=== PATIENT | male | born 1955 | race Caucasian/White ===

== ENCOUNTER 2022-10-14 11:41 | Outpatient (CLI) | payer MEDICARE ==
[2022-10-14 14:52] LABS: BASOPHILS % (AUTO) 0.3 %; EOSINOPHILS # (AUTO) 0.3 10^3/uL (0.0-0.7); EOSINOPHILS % (AUTO) 3.2 %; HCT - HEMATOCRIT 46.2 % (42.0-52.0); HGB - HEMOGLOBIN 15.8 g/dL (14.0-18.0); LYMPHOCYTES # (AUTO) 3.3 10^3/uL (1.5-3.5); LYMPHOCYTES % (AUTO) 36.2 %; MEAN CORPUSCULAR HEMOGLOBIN 29.2 pg (27.0-31.0); MEAN CORPUSCULAR HGB CONC 34.2 g/dL (32.0-36.0); MEAN CORPUSCULAR VOLUME 85.4 fL (80.0-94.0); MEAN PLATELET VOLUME 10.7 fL (7.4-11.4); MONOCYTES # (AUTO) 0.7 10^3/uL (0.0-1.0); MONOCYTES % (AUTO) 7.6 %; NEUTROPHILS # (AUTO) 4.8 10^3/uL (1.5-6.6); NEUTROPHILS % (AUTO) 52.5 %; PLT - PLATELET COUNT 241 10^3/uL (130-450); RED BLOOD COUNT 5.41 10^6/uL (4.70-6.10); RED CELL DISTRIBUTION WIDTH 12.2 % (12.0-15.0); WHITE BLOOD COUNT 9.1 x10^3/uL (4.8-10.8)
[2022-10-14 15:08] LABS: CALCIUM 10.3 mg/dL (8.5-10.3); CREATININE 1.1 mg/dL (0.6-1.2); POTASSIUM 4.1 mmol/L (3.5-5.0)
[2022-10-14 15:26] LABS: THYROID STIMULATING HORMONE 10.68 uIU/mL (0.34-5.60)
[2022-10-14 16:25] LABS: FREE T4 (FREE THYROXINE) 0.75 ng/dL (0.58-1.64)
== END 2022-10-14 11:42 | disposition home or self-care (01) ==
LOC: LAB.S 11:41
PROVIDERS: ATTEND Physician Assistant
DX: R53.83 Other fatigue (principal); M54.2 Cervicalgia
CPT/HCPCS: 36415; 80048; 84439; 84443; 85025

== ENCOUNTER 2022-10-23 14:51 | Outpatient (CLI) | payer MEDICARE ==
[2022-10-23] MEDS ORDERED: iohexoL-300 100 ML VIAL ONE (14:56)
[2022-10-23] MEDS ORDERED: iohexoL-300 100 ML VIAL IVP ONE (17:15)
--- NOTE | 2022-10-23 17:23 | CT Report ---
PROCEDURE: SOFT TISSUE NECK W INDICATIONS: HOT FLASHES, PAIN IN THYROID CONTRAST: 100mL Omni 300 TECHNIQUE: After the administration of intravenous contrast, 3.0 mm axial sections acquired from the sella to th e aortic arch. Additional oblique axial 3.0 mm sections acquired through the pharynx. 3 mm thick co alberto reformats were generated. For radiation dose reduction, the following was used: automated exp osure control, adjustment of mA and/or kV according to patient size. COMPARISON: None. FINDINGS: Image quality: Excellent. Lymph nodes: No enlarged lymph nodes seen throughout the neck. Vessels: Visualized vasculature appears patent. Neck spaces: The oropharynx, nasopharynx, and pharynx demonstrate no mucosal lesions. The vocal cor ds, false vocal cords, pyriform sinuses, epiglottis, vallecula, and tongue base all appear normal. E xtramucosal spaces appear unremarkable. Glands: The submandibular glands appear normal. The parotid glands appear symmetrically enlarged an d fatty infiltrated. In this patient with this given history, scrutiny is given to the thyroid. The thyroid demonstrates a normal appearance, without focal masses or concerning inflammatory change. Miscellaneous: Visualized brain and orbits appear normal. Lung apices appear clear. Superficial so ft tissues appear normal. Bones: No suspicious bony lesions. Visualized sinuses and mastoids appear unremarkable. There is o verall straightening of the normal cervical lordosis. At least moderate cervical spine degenerative c hange can be seen, which is worst inferiorly. IMPRESSION: Normal thyroid by CT. No masses or enlarged lymph nodes can be seen elsewhere. Additional findings: Symmetrically enlarged and fatty infiltrated parotid glands At least moderate cervical spine degenerative change Reviewed by: Otto Pride MD on 10/23/2022 4:21 PM [facility] Approved by: Otto Pride MD on 10/23/2022 4:21 PM [facility] Station ID: [id number]
== END 2022-10-23 14:52 | disposition home or self-care (01) ==
LOC: DI 14:51
PROVIDERS: ATTEND Registered Nurse
DX: M54.2 Cervicalgia (principal); L04.8 Acute lymphadenitis of other sites; R53.83 Other fatigue; R23.2 Flushing
CPT/HCPCS: 70491; Q9967

== ENCOUNTER 2022-12-23 07:58 | Outpatient (CLI) | payer MEDICARE ==
[2022-12-23 15:14] LABS: CREATININE,URINE 103.3 mg/dL; MICROALBUMIN,URINE 3.2 mg/dL (0-300.0)
[2022-12-23 17:12] LABS: CALCIUM 10.6 mg/dL (8.5-10.3); CREATININE 0.9 mg/dL (0.6-1.2); POTASSIUM 4.2 mmol/L (3.5-5.0)
[2022-12-23 20:08] LABS: ESTIMATED AVERAGE GLUCOSE 260 mg/dL (70-100); HEMOGLOBIN A1c% 10.7 % (4.27-6.07)
== END 2022-12-23 07:59 | disposition home or self-care (01) ==
LOC: LAB.S 07:58
PROVIDERS: ATTEND Registered Nurse
DX: R73.9 Hyperglycemia, unspecified (principal)
CPT/HCPCS: 36415; 80048; 82043; 82570; 83036

== ENCOUNTER 2023-01-05 09:34 | Outpatient (CLI) | payer MEDICARE ==
--- NOTE | 2023-01-05 12:30 | Ultrasound Report ---
PROCEDURE: Head or Neck Soft Tissue INDICATIONS: PAIN IN THYROID TECHNIQUE: Real-time scanning was performed of the thyroid gland, with image documentation. COMPARISON: None FINDINGS: Right: Thyroid lobe measures 3.5 x 1.3 x 2.1 cm, and is homogeneous in echotexture. Left: Thyroid lobe measures 4.4 x 1.3 x 2.1 cm, and is homogenous in echotexture. Isthmus: 3 mm thick. Nodule number: One Location: Left inferior Size: 0.5 x 0.4 x 0.6 cm. Composition: Cystic Echogenicity: Anechoic Shape: wider than tall. Margins: Smooth Echogenic foci: None Total points: 0 ACR TI-RADS category: 1 IMPRESSION: Homogeneous thyroid without suspicious nodule. Incidental small left thyroid simple cyst ACR TI-RADS definitions and recommendations: TI-RADS 1 (benign): 0 points. FNA not needed. TI-RADS 2 (not suspicious): 2 points. FNA not needed. TI-RADS 3 (mildly suspicious): 3 points. "FNA if 2.5 cm or larger, follow up if 1.5 cm or larger (at 1, 3, and 5 years). TI-RADS 4 (moderately suspicious): 4-6 points. "FNA if 1.5 cm or larger, follow up if 1 cm or larger (at 1, 2, 3, and 5 years). TI-RADS 5 (highly suspicious): 7 points or more. "FNA if 1 cm or larger, follow up if 0.5 cm or larger (every year for 5 years). Reviewed by: Varghese Hodge MD on 01/05/2023 11:29 AM [facility] Approved by: Varghese Hodge MD on 01/05/2023 11:29 AM [facility] Station ID: [id number]
== END 2023-01-05 09:35 | disposition home or self-care (01) ==
LOC: DI 09:34
PROVIDERS: ATTEND Registered Nurse
DX: E04.1 Nontoxic single thyroid nodule (principal)

== ENCOUNTER 2023-02-04 11:01 | Outpatient (CLI) | payer MEDICARE ==
[2023-02-04 15:12] LABS: THYROID STIMULATING HORMONE 4.95 uIU/mL (0.34-5.60)
== END 2023-02-04 11:02 | disposition home or self-care (01) ==
LOC: LAB.S 11:01
PROVIDERS: ATTEND Registered Nurse
DX: E03.9 Hypothyroidism, unspecified (principal); Z79.899 Other long term (current) drug therapy
CPT/HCPCS: 36415; 84443

== ENCOUNTER 2023-12-24 07:14 | Outpatient (CLI) | payer MEDICARE ==
[2023-12-24 15:02] LABS: THYROID STIMULATING HORMONE 5.31 uIU/mL (0.34-5.60)
[2023-12-24 15:57] LABS: ALBUMIN 4.2 g/dL (3.2-5.5); ALBUMIN/GLOBULIN RATIO 1.5 (1.0-2.2); ALKALINE PHOSPHATASE 37 IU/L (42-121); ALT ALANINE AMINOTRANSFERASE 8 IU/L (10-60); AST ASPARTATE AMINOTRANSFERASE 15 IU/L (10-42); BILIRUBIN,TOTAL 0.7 mg/dL (0.2-1.0); BUN - BLOOD UREA NITROGEN 16 mg/dL (6-20); CALCIUM 10.1 mg/dL (8.5-10.3); CARBON DIOXIDE - CO2 23 mmol/L (21-32); CHLORIDE 104 mmol/L (101-111); CHOL/HDL RATIO 7.1 (<5.0); CHOLESTEROL 221 mg/dL; GFR - MDRD 74 (>89); GLUCOSE 151 mg/dL (74-104); HDL CHOLESTEROL 31 mg/dL; LDL CHOLESTEROL,CALCULATED 154 mg/dL; POTASSIUM 4.1 mmol/L (3.5-4.5); SODIUM 136 mmol/L (135-145); TRIGLYCERIDES 179 mg/dL (48-352); VLDL CHOLESTEROL 36 mg/dL
[2023-12-24 20:46] LABS: ESTIMATED AVERAGE GLUCOSE 183 mg/dL (70-100)
== END 2023-12-24 07:15 | disposition home or self-care (01) ==
LOC: LAB.S 07:14
PROVIDERS: ATTEND Registered Nurse
DX: E11.8 Type 2 diabetes mellitus with unspecified complications (principal); Z13.228 Encounter for screening for other metabolic disorders; Z13.220 Encounter for screening for lipoid disorders; E03.9 Hypothyroidism, unspecified
CPT/HCPCS: 36415; 80053; 80061; 82043; 82570; 83036; 83721; 84443